=== PATIENT | female | born 1975 | race Hispanic/Latino ===

== ENCOUNTER 2018-05-23 09:56 | Outpatient (CLI) | payer OTHER ==
[2018-05-23 10:21] LABS: PLATELET COUNT 296 K/uL (152-353)
[2018-05-23 10:52] LABS: POTASSIUM 3.3 mmol/L (3.6-5.2)
== END 2018-05-23 19:27 | disposition home or self-care (01) ==
LOC: RAD 09:56
PROVIDERS: Physician Assistant Medical
DX: E78.4 Other hyperlipidemia (principal); E03.8 Other specified hypothyroidism; I10 Essential (primary) hypertension; N20.0 Calculus of kidney; M54.2 Cervicalgia
CPT/HCPCS: 36415; 80053; 80061; 84436; 84443; 84479; 85027

== ENCOUNTER 2018-10-07 18:54 | Emergency (ER) | payer OTHER ==
[~2018-10-07] VITALS: Ht 162.6 cm; Wt 54.9 kg
[2018-10-07 21:12] VITALS: BP 138/80; TEMP 98.1
== END 2018-10-07 21:13 | disposition home or self-care (01) ==
LOC: ED 18:54
DX: J01.80 Other acute sinusitis (principal); R51 Headache
CPT/HCPCS: 96372; 99283; J1885